=== PATIENT | male | born 2000 | race Caucasian/White ===

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

== ENCOUNTER 2020-12-09 15:55 | Emergency (ER) | payer BC, OTHER ==
[2020-12-09] MEDS ORDERED: Lidocaine 1% 20 ML MDV INJECT ONE (16:23)
[2020-12-09] MEDS ORDERED: Sodium Chloride 0.9% 1,000 ML IV ONE (16:51)
[2020-12-09] MEDS ORDERED: ceFAZolin 1 GM in Sodium Chloride 0.9% 50 ML IV ONE (16:51)
[2020-12-09] MEDS ORDERED: HYDROmorphone 0.5 MG/0.5 ML Syringe IVPUSH ONE (16:51)
[2020-12-09] MEDS ORDERED: Ketorolac 30 MG/ML SDV IVPUSH ONE (16:51)
[2020-12-09] MEDS ORDERED: Propofol 200 MG/20 ML SDV IVPUSH ONE (17:04)
[2020-12-09] MEDS ORDERED: Bacitracin Oint 1 GM U/D Packet TOP ONE (17:53)
--- NOTE | 2020-12-09 18:05 | PCM.SN.2 ---
- Free Text/Narrative Note: Dr. Stephens requested that I be present for procedure with his intention to give IV sedation. Mr. Khoury unfortunately had an accident with an air Nailer and drove a nail into his right hand. I was present to provide backup as a second provider because of the IV sedation. Patient was given sedation with propofol and the nail was removed by Dr. Stephens. Mr. Khoury tolerated the procedure well and had no untoward effects from sedation.
--- NOTE | 2020-12-09 18:24 | EDM.PDOC ---
ED HPI GENERAL MEDICAL PROBLEM - General Chief Complaint: General Stated Complaint: RIGHT HAND HAS A NAIL IN IT Time Seen by Provider: 12/09/20 16:25 Source of Information: Reports: Patient History Limitations: Reports: No Limitations - History of Present Illness INITIAL COMMENTS - FREE TEXT/NARRATIVE: 20-year-old male with a foreign body in his right hand. He has a 3-1/2 inch construction nail embedded into the palm of the right hand, entry point just at the base of the index finger. He is unable to move the thumb. No active bleeding. No other injury. Onset: Sudden Duration: Hour(s): (2 hours ago) Location: Reports: Upper Extremity, Right Associated Symptoms: Reports: No Other Symptoms Right Hand Pain Score (Numeric/FACES): 7 - Related Data Allergies Allergy/AdvReac Type Severity Reaction Status Date / Time No Known Allergies Allergy Verified 12/09/20 16:15 Home Meds: Home Meds NK [No Known Home Meds] 12/09/20 [History] Past Medical History - Past Health History Medical/Surgical History: Denies Medical/Surgical History - Infectious Disease History Infectious Disease History: Reports: None Social & Family History - Tobacco Use Tobacco Use Status *Q: Current Every Day Tobacco User Years of Tobacco use: 2 Packs/Tins Daily: 0.5 - Caffeine Use Caffeine Use: Reports: Coffee - Recreational Drug Use Recreational Drug Use: Yes Drug Use in Last 12 Months: Yes Recreational Drug Type: Reports: Marijuana/Hashish Review of Systems - Review of Systems Review Of Systems: See Below Constitutional: Denies: Fever Respiratory: Denies: Shortness of Breath Cardiovascular: Denies: Chest Pain Skin: Reports: Other (See HPI) Neurological: Denies: Paresthesia ED EXAM, GENERAL - Physical Exam Exam: See Below Exam Limited By: No Limitations General Appearance: Alert, No Apparent Distress, Anxious Head: Atraumatic Respiratory/Chest: No Respiratory Distress Extremities: Other (Exam is otherwise limited to the right hand. Patient has a 3-1/2 cm construction nail embedded into the hand with an entry point at the base of the index finger palmar surface. He has significant tenderness to palpation of the base of the thumb and wrist area, and is unable to move the thumb. ) Neurological: Alert Course - Vital Signs Last Recorded V/S: Last Vital Signs Temp 97 F 12/09/20 16:17 Pulse 101 H 12/09/20 18:05 Resp 14 12/09/20 18:05 BP 125/77 12/09/20 18:05 Pulse Ox 96 12/09/20 18:05 - Orders/Labs/Meds Orders: Active Orders 24 hr Category Date Time Status Consult to Orthopedic Clinic [CONS] Routine Cons 12/09/20 18:23 Active Meds: Medications Discontinued Medications Generic Name Dose Route Start Last Admin Trade Name Freq PRN Reason Stop Dose Admin Bacitracin 1 dose 12/09/20 17:53 12/09/20 18:06 Bacitracin Oint 1 Gm U/D Packet TOP 12/09/20 17:54 1 dose ONETIME ONE Administration Hydromorphone HCl 0.5 mg 12/09/20 16:51 12/09/20 17:07 Hydromorphone 0.5 Mg/0.5 Ml Syringe IVPUSH 12/09/20 16:52 0.5 mg ONETIME ONE Administration Sodium Chloride 1,000 mls @ 999 mls/hr 12/09/20 16:51 12/09/20 17:05 Normal Saline IV 12/09/20 17:51 999 mls/hr ONETIME ONE Administration Cefazolin Sodium 1 gm/ Sodium 50 mls @ 100 mls/hr 12/09/20 16:51 12/09/20 17:06 Chloride IV 12/09/20 17:20 100 mls/hr ONETIME ONE Administration Ketorolac Tromethamine 30 mg 12/09/20 16:51 12/09/20 17:06 Ketorolac 30 Mg/Ml Sdv IVPUSH 12/09/20 16:52 30 mg ONETIME ONE Administration Lidocaine HCl 20 ml 12/09/20 16:23 12/09/20 16:28 Lidocaine 1% 20 Ml Mdv INJECT 12/09/20 16:24 20 ml ONETIME ONE Administration Propofol 200 mg 12/09/20 17:04 12/09/20 17:57 Propofol 200 Mg/20 Ml Sdv IVPUSH 12/09/20 17:05 200 mg ONETIME ONE Administration - Re-Assessments/Exams Free Text/Narrative Re-Assessment/Exam: 12/10/20 11:16 An x-ray was obtained of the right hand which confirmed that the nail was embedded into the distal aspect of the thumb metacarpal. No extended fracture displaced bone. We attempted to do some local anesthesia but the patient was too anxious and intolerant, and with the nail embedded into the bone we felt general sedation would be more beneficial. Dr. Kilpatrick was consulted to assist, and the patient was given 200 mg of IV propofol for appropriate sedation. The nail was removed with countertraction and the wound cleansed with saline. He was given 1 g of IV Ancef prior to the procedure, and will be continued on Augmentin 875 mg twice daily. I did discuss the case with Dr. Cunha, he will recheck the patient next week. His tetanus is current. Topical bacitracin and dressings were applied and he should wear immobilizing bandages or Ancelmo wraps until recheck next week. Departure - Departure Time of Disposition: 18:38 Disposition: Home, Self-Care 01 Clinical Impression: Puncture wound Metacarpal bone fracture Qualifiers: Encounter type: initial encounter Metacarpal bone: first Fracture type: open Metacarpal location: base Fracture alignment: nondisplaced Laterality: right - Discharge Information Instructions: Metacarpal Fracture, [id number] Referrals: PCP,None [Primary Care Provider] - Forms: ED Department Discharge Care Plan Goals: Take antibiotic twice daily as prescribed. Keep wound covered and clean while healing, wrap for comfort and increase activity as tolerated. Recheck with Dr. Cunha next Monday if any concerns. A regular dose of ibuprofen or naproxen will be helpful. Sepsis Event Note (ED) - Evaluation Sepsis Screening Result: No Definite Risk - My Orders Last 24 Hours: My Active Orders 12/09/20 18:23 Consult to Orthopedic Clinic [CONS] Routine - Assessment/Plan Last 24 Hours: My Active Orders 12/09/20 18:23 Consult to Orthopedic Clinic [CONS] Routine
--- NOTE | 2020-12-10 09:02 | CR ---
Hand Comp Min 3V Rt CLINICAL HISTORY: Foreign body FINDINGS: There is a large nail through the thenar soft tissues from distal to proximal. The tip of the nail passes through the base of the first metacarpal. There is articular surface involvement. Impression: Nail through the first metacarpal
--- NOTE | 2020-12-10 09:05 | CR ---
Hand Comp Min 3V Rt CLINICAL HISTORY: Post foreign body removal FINDINGS: There is a defect through the base of the first metacarpal following removal of a large nail. There is a tiny metallic Speck in or on the ER soft tissues. This may be on the skin. Impression: Bony defect through the base of the first metatarsal following removal of nail. Punctate metallic focus at the T9 soft tissues. This may be enhancement internal or on the skin
== END 2020-12-09 18:38 | disposition home or self-care (01) ==
LOC: JP.ED 15:55
DX: S62.234B Other nondisplaced fracture of base of first metacarpal bone, right hand, initial encounter for open fracture (principal); Z72.0 Tobacco use; W45.8XXA Other foreign body or object entering through skin, initial encounter
CPT/HCPCS: 73130-26-RT; 73130-RT; 96365; 96375; 99283-25; J0690; J1170; J1885; J2704; J7030

== ENCOUNTER 2022-05-15 19:23 | Emergency (ER) | payer OTHER, MEDICAID ==
[2022-05-15] MEDS ORDERED: cefTRIAXone 1 GM Vial IM ONE (21:22)
[2022-05-15] MEDS ORDERED: Lidocaine 1% 5 ML VIAL INJECT ONE (21:23)
== END 2022-05-15 22:28 | disposition home or self-care (01) ==
LOC: JP.ED 19:23
DX: S80.821A Blister (nonthermal), right lower leg, initial encounter (principal)
CPT/HCPCS: 96372; 99283; J0696